=== PATIENT | female | born 1990 | race Caucasian/White ===

== ENCOUNTER 2024-11-07 20:43 | Emergency (ER) | payer OTHER, SELFPAY ==
[2024-11-07 20:45] VITALS: BP 151/93
[2024-11-07 21:24] VITALS: BMI 25.1
--- NOTE | 2024-11-07 21:26 | EDRN ---
Pt is 16 weeks and she noticed some red spotting last night with wiping. Today, pt noted red spotting and tonight some blood clots which were new. Pt says spotting is more often today, not enough to wear a pad but she did note it on her
underwear today. Pt called her OB who advised pt come to ED for pelvic exam and measurement of her cervix. G2A0P1. Pt has had cramping which she says is same she had with her last . No fever/chills, cp. Pt has sob with walking up
stairs. Pt flew to [place] last week. No leg swelling/pain.
[2024-11-07 21:44] LABS: Hematocrit 34.8 % (37.0-47.0); Hemoglobin 12.8 g/dL (12.0-16.0); Mean Corp Hgb Conc. 36.8 g/dL (33.0-37.0); Mean Corpuscular Hgb 31.6 pg (27.0-31.0); Mean Corpuscular Volume 85.9 fL (81.0-99.0); Mean Platelet Volume 11.1 fL (7.4-10.4); Platelet Count 174 10^3/uL (130-400); Red Blood Cell Count 4.05 10^6/uL (4.20-5.40); Red Cell Dist. Width 12.8 % (11.5-14.5); White Blood Cell Count 8.6 10^3/uL (4.8-10.8)
[2024-11-07 22:07] LABS: Blood Urea Nitrogen 13 mg/dl (7-17); Calcium 9.4 mg/dl (8.4-10.2); Carbon Dioxide 23 mmol/L (22-30); Chloride 106 mmol/L (98-107); Estimated Creatinine Clearance > 125 ml/min; Glucose 112 mg/dl (70-99); Potassium 3.6 mmol/L (3.5-5.1); Sodium 137 mmol/L (135-145); eGFR > 60.00
--- NOTE | 2024-11-07 22:32 | ED.GENMED ---
History of Present Illness
General
Chief Complaint: Problems
Source: patient and spouse
Exam Limitations: none
Time Seen by Provider: 11/07/24 21:49
History of Present Illness
History of Present Illness:
34-year-old female G2, P1, 16 weeks complaining of vaginal spotting that started a few days ago. Some increased clotting today. Has had some cramping but this has been throughout the and has not changed in intensity or frequency
or character. In no distress at this time. No fever. Discussed with her [employer] SET BUILDER who recommended ER evaluation ultrasound cervical length and pelvic exam.
Past History
Past History
ED Past Medical History: Other (UTI approximately one month ago); Negative Asthma, HTN, Hypercholesterolemia or NIDDM
ED Past Surgical History: None
Social History
Tobacco: Non-smoker
Alcohol: Occasional
Personal:
Living: with family
Employment: Other (Student)
Family History
Family History: Other (Father with history of kidney stones)
Review of Systems
Review of Systems
All Other Systems: Not applicable
Constitutional: Denies fever or chills
Phy Exam
Physical Exam
Physical Exam:
GENERAL: Alert and oriented in no apparent distress
EYE: Orbits normal.
NECK: Supple
CARDIAC: Regular rate and rhythm without any obvious murmurs.
LUNGS: Clear breath sounds,normal
ABDOMEN: Soft, no distention. Bowel sounds present. Minimal suprapubic fullness. No rebound or guarding no mass or hernia
NEUROLOGICAL: Alert and oriented , grossly non-focal
SKIN: Warm and dry, no rash or lesion, no discoloration, skin intact.
MUSCULOSKELETAL: No edema,no deformity.Good color
PSYCH: Normal and appropriate interaction.
Course
Orders/Labs/Results
Orders:
Orders
11/07/24 21:36
Type+Screen Urgent
BMP [Basic Metabolic Panel] Urgent
Beta HCG Quantitative Urgent
Is this a screen?: No
Complete Blood Count/No Diff Urgent
11/07/24 21:56
US 2nd/3rd Trimester Urgent
Comment:
Reason For Exam: 16-week . Vag bleed. fetus/cervical lengt
Abnormal Lab Results
11/07/24
21:36
RBC 4.05 L 10^6/uL
(4.20-5.40)
Hct 34.8 L %
(37.0-47.0)
MCH 31.6 H pg
(27.0-31.0)
MPV 11.1 H fL
(7.4-10.4)
Creatinine 0.5 L mg/dL
(0.6-1.0)
Glucose 112 H mg/dl
(70-99)
11/07/24 21:36
11/07/24 21:36
Vital Signs
Initial and Last Documented VS:
Initial Vital Signs
Temp Pulse Resp BP Pulse Ox
98.4 F 76 16 151/93 100
11/07/24 20:45 11/07/24 20:45 11/07/24 20:45 11/07/24 20:45 11/07/24 20:45
Last Documented Vital Signs
Temp Pulse Resp BP Pulse Ox
98.4 F 78 16 122/76 99
11/07/24 20:45 11/07/24 22:51 11/07/24 22:51 11/07/24 22:51 11/07/24 22:51
Information
Weeks gestation: Weeks: (16)
Location: Location: (iup)
MDM/Problems Addressed
Differential Diagnosis Includes:
Ultrasound pending. Labs stable. O+. Differential would include bleeding in , threatened , incomplete . Workup in progress
*Radiology
Radiology exam reviewed: radiology read reviewed (Ultrasound shows IUP. Good heart rate. Cervix 3.93 cm. Low-lying placenta with edge 1.8 cm from the cervical os.)
*Pulse Oximetry
Patient hypoxic: no
*Critical Care Note
Total Time (30-74mins, 75-104mins- exclusive of procedures): Not Applicable
Data Reviewed
Review of Other/Old Records Reveals: Labs and Records
Update Note
Update Note:
Discussed with patient's [employer] SET BUILDER. Medically stable. Bleeding minimal. Can hold off on pelvic exam. Stable for discharge to follow-up. Copy of report given to
ED Attending Note
-
Portions of this chart may have been created with voice recognition software.� Occasional wrong word or��sound alike� substitutions may have occurred due to the inherent limitations of voice recognition software.
Discharge Plan
Departure
Patient Disposition: Home (Routine Discharge)
Date of Disposition: 11/07/24
Time of Disposition: 23:35
Patient with high blood pressure during this ER visit?: No
Discharge Problem:
Vaginal bleeding, 16-week
Prescriptions:
No Action
Multi 27-800 mg-mcg Tablet
1 tab PO DAILY
Referrals:
UNKNOWN - PT DOES,NOT KNOW [Family Provider] -
Activity Restrictions/Additional Instructions:
Follow-up closely early this week with your MINIATURE SET BUILDER
Pelvic rest
Return immediately with increased bleeding increased pain fever or any other concerning symptoms
Interventions
Interventions:
*Risk Screen - Suicide Last Done: 11/07/24 20:45
*General Assessment Last Done: 11/07/24 20:45
*Neglect/Abuse Screening Last Done: 11/07/24 20:45
*ED- Fall Risk Assessment Last Done: 11/07/24 21:25
*ED COVID-19 Vaccine History Last Done: 11/07/24 21:25
ED-Female Genitourinary Assessment Last Done: 11/07/24 22:00
Discharge Date and Time
Print Language: KOSOVAN
[2024-11-07 22:51] VITALS: BP 122/76
== END 2024-11-07 23:43 | disposition home or self-care (01) ==
LOC: EMR 20:43
PROVIDERS: Emergency Medicine; EMERGENCY PHYSICIAN Emergency Medicine
DX: O20.9 Hemorrhage in early pregnancy, unspecified (principal); Z3A.16 16 weeks gestation of pregnancy; O10.912 Unspecified pre-existing hypertension complicating pregnancy, second trimester; O24.112 Pre-existing type 2 diabetes mellitus, in pregnancy, second trimester; Z87.440 Personal history of urinary (tract) infections
CPT/HCPCS: 99284; 76805; 80048; 84702; 85027; 86850; 86900; 86901